=== PATIENT | male | born 1985 | race African-American/Black ===

== ENCOUNTER 2020-04-28 03:43 | Emergency (ER) | payer OTHER, SELFPAY ==
[2020-04-28 03:48] VITALS: BP 144/85; PULSE 87; RESP 12; TEMP 36.2; O2SAT 100
--- NOTE | 2020-04-28 04:12 | ED.EYEPROB ---
HPI - Eye Problem General Chief complaint: Eye Problems Stated complaint: left eye swelling Time Seen by Provider: 04/28/20 03:49 Source: patient Mode of arrival: ambulatory Limitations: no limitations History of Present Illness HPI Narrative: Patient is a 35-year-old male complaining of left upper eyelid swelling started this morning, woke up from it. Patient states that he applied some type of ointment that he bought [id number] for his stye on his left eye prior to going to [facility], and when he woke up his left eyelid was swollen. Patient denies any other facial swelling. Denies any lip, tongue, or throat swelling. Patient denies any extremity swelling or shortness of breath. Related Data Allergies Allergy/AdvReac Type Severity Reaction Status Date / Time Penicillins Allergy Unknown ? Verified 04/28/20 03:52 Review of Systems Review of Systems: All systems reviewed & are unremarkable except as noted in HPI and below PMFSH Social History Social History Gender identity (if verbalized by the patient): Male Exam Const: General: cooperative, healthy appearing, comfortable, no acute distress, well developed, alert and awake; No confusion Orientation/consciousness: oriented to person, oriented to place, oriented to time, patient oriented x3 and No confusion Limitations: no limitations HENMT: Head: normal to inspection, normocephalic and atraumatic Ears: hearing grossly normal bilaterally, TM normal on the right and TM normal on the left General nose exam: Normal external nose present, Normal nares present and No nasal discharge present Face and sinus: normal facial exam Mouth: Yes Normal oral and palatal mucosa present, Yes lip normal, Yes tongue normal and Yes oropharynx normal Throat: posterior oropharynx normal, tonsils normal and uvula midline Eyes: Conjunctivae: conjunctivae normal Pupils: Equal, round and reactive pupils present EOM: EOMs intact bilaterally Other: Left upper eyelid swelling. Right eye, periorbital area, normal. Neck: Neck: normal visual inspection, full ROM, no lymphadenopathy and no meningeal signs Chest: Chest palpation & inspection: normal inspection of the chest Resp: Effort & Inspection: normal respiratory effort, able to speak in complete sentences, no respiratory distress and not tachypneic Auscultation: clear to auscultation bilaterally, no crackles, no rales, no rhonchi and no wheezes Cardio: Rate: regular rate Rhythm: regular rhythm GI: Inspection: normal to inspection GI Palp: No abdominal tenderness, Yes Soft to palpation, No Tenderness to palpation present (GI), No Guarding due to palpation present (GI), No Rigid due to palpation and No Rebound tenderness present Auscultation: normal bowel sounds : General: Yes no CVA tenderness Back/Spine/Pelvis: Back: no CVA tenderness Skin: General skin exam: no rashes or lesions noted, elasticity normal and turgor normal Neuro: General: oriented to person, oriented to place, oriented to time, patient oriented x3, tone normal, moves all extremities, Normal light touch and pain sensation, no meningeal signs, no focal motor deficits, CN's II-XI intact bilaterally and No confusion Cranial nerves: Yes Equal, round and reactive pupils present Speech: No Abnormal speech present Sensory Exam: No Sensory deficit (Neuro) Extrem: General: normal to inspection, full ROM and capillary refill normal Psych: Appearance: grossly normal and well kempt Mental Status: mental status grossly normal Speech and movement: Normal speech and movement present Affect: normal affect Attitude: cooperative Thought process: Normal thought process present Thought content: Yes Normal thought content present Insight: Good insight present (Psych) Judgement: Good judgement present (Psych) Course Vital Signs Vital signs: Vital Signs Temperature 36.2 C L 04/28/20 03:48 Pulse Rate 87 04/28/20 03:48 Respiratory Rate 12 04/28/20 03:48 Blood P
[2020-04-28] MEDS: FAMOTIDINE 20 MG TABLET 40 MG PO (04:28)
[2020-04-28] MEDS: predniSONE 20 MG TABLET 60 MG PO (04:28)
[2020-04-28] MEDS: CEPHALEXIN 500 MG CAPSULE PO (04:30)
== END 2020-04-28 04:00 | disposition home or self-care (01) ==
PROVIDERS: Emergency Provider Emergency Medicine
DX: T78.40XA Allergy, unspecified, initial encounter (principal); H00.014 Hordeolum externum left upper eyelid
CPT/HCPCS: 99283; A9270; J7512